=== PATIENT | male | born 1960 | race Two or more races ===

== ENCOUNTER 2024-11-24 11:28 | Emergency (ER) | payer MEDICAID ==
[~2024-11-24] VITALS: Ht 162.6 cm; Wt 90.7 kg
[2024-11-24] MEDS ORDERED: CALCIUM CHLORIDE 1,000 MG/10 ML DISP.SYRIN IV ONE (11:35)
[2024-11-24 11:38] VITALS: TEMP 98.1
[2024-11-24] MEDS ORDERED: ONDANSETRON HCL/PF 4 MG/2 ML VIAL ONE (11:59)
[2024-11-24] MEDS ORDERED: MORPHINE SULFATE INJ 2 MG/ML DISP.SYRIN ONE (11:59)
[2024-11-24] MEDS: MORPHINE SULFATE INJ 2 MG/ML DISP.SYRIN IV ONE (12:02)
[2024-11-24 12:08] LABS: PLATELET COUNT (AUTO) 190 K/uL (150-450); RED BLOOD CELL COUNT(AUTO) 5.51 MIL/uL (4.5-6.0); RED CELL DISTRIBUTION WIDTH 15.2 % (11.5-15.0); WHITE BLOOD COUNT (AUTO) 9.8 K/uL (4.3-11.0)
[2024-11-24 12:15] LABS: CALCIUM, SERUM 9.1 mg/dL (8.5-10.1); CREATININE 1.5 mg/dL (0.6-1.3); SODIUM SERUM 141.0 mmol/L (136-145); UREA NITROGEN, BLOOD 16.0 mg/dL (7-18)
[2024-11-24] MEDS: ONDANSETRON HCL/PF - ER 4 MG/2 ML VIAL IV ONE (12:53)
[2024-11-24] MEDS ORDERED: IOHEXOL-350 100 ML VIAL IV ONE ×2 (13:52→14:12)
[2024-11-24] MEDS ORDERED: IV NS 0.9% 250 ML IV ONE ×2 (13:52→14:12)
[2024-11-24] MEDS: IV NS 0.9% 1,000 ML BAG IV ONE (14:30)
[2024-11-24] MEDS ORDERED: NICARDIPINE IN DEXTROSE,ISO-OS 200 ML IV ONE (14:42)
[2024-11-24] MEDS ORDERED: NOREPINEPHRINE 8MG/250ML RTU 250 ML IV ONE (15:18)
[2024-11-24 16:35] VITALS: O2SAT 100
[2024-11-24] MEDS: FENTANYL PF 100MCG/2ML AMPUL IV ONE (17:30)
[2024-11-24] MEDS ORDERED: EPINEPHRINE (1:10,000) SYRINGE 1 MG/10 ML DISP.SYRIN ONE (17:43)
[2024-11-24] MEDS ORDERED: SODIUM BICARBONATE SYR 50 MEQ/50 ML DISP.SYRIN ONE (17:43)
[2024-11-24 20:10] VITALS: BP 99/80
[2024-11-24] MEDS: NOREPINEPHRINE 8 MG in IV D5W 242 ML IV PRN (20:10)
[2024-11-24] MEDS: NICARDIPINE HCL 40 MG in IV NS 0.9% 184 ML IV PRN (20:12)
== END 2024-11-24 21:00 ==
LOC: ER 11:34
DX: I71.00 Dissection of unspecified site of aorta (principal); I95.9 Hypotension, unspecified; I25.2 Old myocardial infarction; I46.9 Cardiac arrest, cause unspecified; I71.21 Aneurysm of the ascending aorta, without rupture; I10 Essential (primary) hypertension
CPT/HCPCS: 36556; 99291; 99292; 31500; 71275; 85025; 80048; 85378; 36415; 84484; 96365; 96361; 96375; 93005 ×4; 71045; J3490 ×3; J2405 ×2; J7030; J7050 ×2; A4223; J2270; Q9967 ×2; J0171 ×2